=== PATIENT | male | born 1945 | race American Indian/Alaskan Native ===

== ENCOUNTER 2017-08-03 09:50 | Day surgery (SDC) | payer MEDICARE ==
[~2017-08-03 09:50] MED LIST: ANCEF/STERILE WATER 2 GM/20 ML 2 GM/20 ML SYRINGE IV SCH
[2017-08-03] MEDS ORDERED: NACL BACTERIOSTATIC INFILTRATI ONE (10:55)
--- NOTE | 2017-08-03 11:18 | Anesthesia Consultation ---
Anesthesia Consult and Med Hx Date of service: 08/03/17 - Airway Anesthetic Teeth Evaluation: Good ROM Head & Neck: Adequate Mental/Hyoid Distance: Adequate Mallampati Class: Class II Intubation Access Assessment: Probably Good - Pulmonary Exam CTA: Yes - Cardiac Exam Cardiac Exam: RRR - Pre-Operative Health Status ASA Pre-Surgery Classification: ASA3 (hx of kidney transplant 5 yrs ago) - Pulmonary Hx Smoking: No SOB: Yes (SOB) Hx Sleep Apnea: Yes (DX SLEEP APNEA WITH CPAP USE) - Cardiovascular System Hx Hypertension: Yes (X 35 YRS) Hx Heart Attack/AMI: No Hx Heart Murmur: Yes - Central Nervous System Hx Back Pain: Yes (NECK AND BACK PAIN- MULTIPLE SURGERIES) - Other Systems Hx Cancer: No
--- NOTE | 2017-08-03 11:19 | Anesthesia Day of Surgery ---
Anesthesia Day of Surgery - Day of Surgery Patient Examined: Yes Patient H&P Reviewed: Yes Patient is NPO: Yes Beta Blockers: Yes
[2017-08-03] MEDS ORDERED: MARCAINE 0.25% INFILTRATI ONE ×2 (11:47→13:20)
[2017-08-03] MEDS ORDERED: VERSED IV NR (12:00)
[2017-08-03] MEDS ORDERED: LACTATED RINGERS 1,000 ML IV SCH (12:00)
[2017-08-03] MEDS ORDERED: DIPRIVAN 10 MG/ML IV ONE (12:33)
[2017-08-03] MEDS ORDERED: DECADRON ONE (12:33)
[2017-08-03] MEDS ORDERED: ZOFRAN ONE (12:33)
[2017-08-03] MEDS ORDERED: XYLOCAINE MPF 2% ONE (12:33)
[2017-08-03] MEDS ORDERED: DILAUDID ONE (12:36)
--- NOTE | 2017-08-03 13:49 | Post Anesthesia Evaluation ---
- Post Anesthesia Evaluation Patient Participated: Yes Airway Patent: Yes Stable Respiratory Function: Yes Nausea/Vomiting: No Temp > 96.8F: Yes Pain Manageable: Yes Adequeate Hydration: Yes Anesthesia Complications: No
[2017-08-03] MEDS: SUBLIMAZE IV PRN ×2 (14:08→14:27)
[2017-08-03] MEDS ORDERED: NORCO 5/325 PO PRN (15:27)
[2017-08-03 15:53] VITALS: BP 108/70
--- NOTE | 2017-08-04 | Operative Report ---
PREOPERATIVE DIAGNOSES: Right knee degenerative joint disease, meniscal tears. POSTOPERATIVE DIAGNOSES: 1. Right knee with extensive tear, medial meniscus posterior horn body and anterior horn. 2. Tear posterior horn, lateral meniscus. 3. Synovitis, extensive. 4. 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 5. 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 6. Grade 4 chondromalacia patella, diffuse. PROCEDURE PERFORMED: 1. Right knee arthroscopy with partial medial and lateral meniscectomy. 2. Synovectomy. 3. Chondroplasty of the groove. 4. Chondroplasty of medial femoral condyle. SURGEON: Kade Douglas M.D. BRIDGE ENGINEER: Zaid Cloud CSA. ANESTHESIA: General. ESTIMATED BLOOD LOSS: Minimal. COMPLICATIONS: None. DESCRIPTION OF PROCEDURE: The patient underwent successful induction of anesthesia. Lower extremity was meticulously prepped and draped in the usual fashion after being exsanguinated and positioned in a leg plasencia. Arthroscopy was carried out utilizing standard medial and lateral portals. Systematic exam of the joint was carried out demonstrated findings as noted. Synovitis was noted tricompartmentally. Patellofemoral compartment demonstrated advanced chondromalacia diffuse on the patella with grade 4 unstable, chondral flaps gently debrided on the trochlear groove side with a ClusterSeven surface ____ noncontact chondral sparing mode. Lateral compartment demonstrated well preserved articular surfaces. The meniscus demonstrated a tear of the posterior horn insertional debrided with a surface and full radius resector lying for preservation of peripheral 75% of the attachment point. The remainder of the meniscus demonstrated central fraying gently debrided the majority of the meniscus well preserved. The medial compartment demonstrated grade 2-3 chondromalacia medial femoral condyle with no significant ____ stable chondral flaps, meniscus demonstrated an extensive tear involving the posterior horn body and the anterior horn. Complex components were noted with inverted flap. This to be in a combination of full resector and the surface. Next a stable rim was achieved. preservation of the peripheral 70% of the posterior horn, the body at its apex only was debrided out the peripheral 20% and the peripheral 70% of the anterior horn well preserved as well. Thorough examination and irrigation through the joint carried out of both portals. Intraoperative photos were obtained for documentation. The joint was copiously irrigated and checked, 0.25% Marcaine. Ports were closed nylon sutures. Steri-Strips applied. He was taken to the recovery room in satisfactory condition having tolerated the procedure well. JOB# [id number] JESIP/XIN
== END 2017-08-03 16:09 | disposition home or self-care (01) ==
LOC: OR 09:50
PROVIDERS: ATTEND Orthopaedic Surgery
DX: S83.241A Other tear of medial meniscus, current injury, right knee, initial encounter (principal); S83.281A Other tear of lateral meniscus, current injury, right knee, initial encounter; M94.261 Chondromalacia, right knee; M22.41 Chondromalacia patellae, right knee; G47.30 Sleep apnea, unspecified; I10 Essential (primary) hypertension; Z99.89 Dependence on other enabling machines and devices; Z88.5 Allergy status to narcotic agent; X58.XXXA Exposure to other specified factors, initial encounter; Y93.89 Activity, other specified; Y92.89 Other specified places as the place of occurrence of the external cause; Y99.8 Other external cause status
CPT/HCPCS: 29880; 36415; 84132; J0690; J1100; J1170; J2405; J2704; J3010; J7120